=== PATIENT | male | born 1970 | race Caucasian/White ===

== ENCOUNTER 2017-08-26 16:16 | Emergency (ER) | payer BC ==
[~2017-08-26] VITALS: Ht 175.3 cm; Wt 63.0 kg
[2017-08-26 16:32] VITALS: BP 143/83
[2017-08-26] MEDS ORDERED: NITROGLYCERIN 0.4 MG TAB SL ONE (16:50)
[2017-08-26] MEDS ORDERED: ASPIRIN 325 MG TAB PO ONE (16:50)
[2017-08-26 17:04] LABS: BASOPHILS # (AUTO) 0.3 K/uL (0.00-0.22); EOSINOPHILS # (AUTO) 0.2 K/uL (0-0.4); HEMATOCRIT 43.3 % (36-52); HEMOGLOBIN 14.6 g/dL (12.0-18.0); LYMPHOCYTES # (AUTO) 2.6 K/uL (2.0-11.5); MEAN CORPUSCULAR HEMOGLOBIN 30 pg (27-31); MEAN CORPUSCULAR HGB CONC 34 g/dL (33-37); MEAN CORPUSCULAR VOLUME 89 fL (80-94); MONOCYTES # (AUTO) 0.8 K/uL (0.8-1.0); NEUTROPHILS # (AUTO) 3.4 K/uL (1.8-7.7); PLATELET COUNT (AUTO) 200 K/uL (140-450); RED BLOOD CELL COUNT(AUTO) 4.85 MIL/uL (4.20-6.10); RED CELL DISTRIBUTION WIDTH 12.1 % (11.6-13.7); WHITE BLOOD COUNT (AUTO) 7.3 K/uL (4.8-10.8)
[2017-08-26 17:16] LABS: ANION GAP 8.8 (8-16); CREATININE 0.9 mg/dL (0.7-1.3); POTASSIUM 3.8 mmol/L (3.5-5.1)
[2017-08-26 17:23] LABS: ALBUMIN 3.8 g/dL (3.4-5.0); TOTAL BILIRUBIN 0.3 mg/dL (0.0-1.0)
--- NOTE | 2017-08-26 17:50 | NUR ---
Patient ambulated to bed 11. RN evaluating patient at bedside.
[2017-08-26] MEDS ORDERED: LORazepam 1 MG TAB PO ONE (18:00)
--- NOTE | 2017-08-26 18:00 | NUR ---
47m bib with c/o 4/10 "sharp" non radiating righrt and left sided cp that started around 1430; pt states around 1430 while he was wathching tv, he started to feel anxious and cp began; pt also reports of "all over" headache and left arm pain. pt denies any n/v/d at this time. pt is aox4, rr are even and unlabored. skin is warm, pink, and dry. nad. vss. pt positioned to comfort, bed down. will continue to montior.
[2017-08-26 19:20] VITALS: BP 130/79
== END 2017-08-26 19:20 | disposition home or self-care (01) ==
LOC: MED 16:16
DX: F41.9 Anxiety disorder, unspecified (principal); R07.9 Chest pain, unspecified; F17.200 Nicotine dependence, unspecified, uncomplicated
CPT/HCPCS: 36415; 71010; 80053; 83880; 84484; 85025; 99285

== ENCOUNTER 2019-02-07 23:55 | Emergency (ER) | payer BC ==
[~2019-02-07] VITALS: Ht 170.2 cm; Wt 65.3 kg
[2019-02-07 23:55] VITALS: BP 137/76
--- NOTE | 2019-02-08 00:05 | NUR ---
PT AMBULATED TO BED #3
[2019-02-08] MEDS ORDERED: ASPIRIN 325 MG TAB PO ONE (00:10)
--- NOTE | 2019-02-08 00:15 | NUR ---
LAB AT BEDSIDE.
--- NOTE | 2019-02-08 00:26 | NUR ---
DR. MILLER EVALUATING PT
[2019-02-08 00:27] LABS: BASOPHILS % (AUTO) 0.8 % (0.0-2.0); EOSINOPHILS # (AUTO) 0.2 K/uL (0-0.4); HEMATOCRIT 42.2 % (36-52); HEMOGLOBIN 14.4 g/dL (12.0-18.0); LYMPHOCYTES # (AUTO) 2.7 K/uL (2.0-11.5); MEAN CORPUSCULAR HEMOGLOBIN 30 pg (27-31); MEAN CORPUSCULAR HGB CONC 34 g/dL (33-37); MEAN CORPUSCULAR VOLUME 88.7 fL (80-94); MONOCYTES # (AUTO) 0.5 K/uL (0.8-1.0); MONOCYTES % (AUTO) 8.5 % (1.7-9.3); NEUTROPHILS # (AUTO) 2.4 K/uL (1.8-7.7); NEUTROPHILS % (AUTO) 40.7 % (42.2-75.2); PLATELET COUNT (AUTO) 206 K/uL (140-450); RED BLOOD CELL COUNT(AUTO) 4.76 MIL/uL (4.20-6.10); RED CELL DISTRIBUTION WIDTH 12.7 % (11.6-13.7)
[2019-02-08 00:28] LABS: APPEARANCE,URINE CLEAR (CLEAR); BILIRUBIN,URINE NEGATIVE (NEGATIVE); BLOOD, URINE TRACE-I (NEGATIVE); COLOR,URINE YELLOW (YELLOW); LEUKOCYTE ESTERASE ,URINE NEGATIVE (NEGATIVE); NITRITE, URINE NEGATIVE (NEGATIVE); UGLUCOSE NEGATIVE (NEGATIVE)
--- NOTE | 2019-02-08 00:30 | NUR ---
PT BIB SELF FOR CHEST PAIN AND SOB. RR EVEN AND UNLABORED, PT 02 100% ON RA. NON PROVOKED CHEST PAIN. PT STATES HE HAS BEEN TAKING DAUGHTERS ANTIANXIETY MEDS W/O RELIEF. PT AWAKE AND ALERT, ACTING APPROPRIATE.
--- NOTE | 2019-02-08 00:32 | NUR ---
EKG PERFORMED AT BEDSIDE
[2019-02-08 00:34] LABS: BARBITURATE, URINE NEG. ng/ml (NEG <=200); BENZODIAZEPINE, URINE NEG. ng/mL (NEG <=200); CANNABINOID, URINE NEG. ng/mL (NEG <=50); COCAINE, URINE NEG. ng/mL (NEG <=300); OPIATE, URINE NEG. ng/mL (NEG <=2000); PHENCYCLIDINE SCREEN,URINE NEG. ng/mL (NEG <=25)
[2019-02-08] MEDS ORDERED: MORPHINE SULFATE 4 MG/ML SYR IVP ONE (00:35)
[2019-02-08] MEDS ORDERED: NITROGLYCERIN 0.4 MG TAB SL ONE (00:35)
[2019-02-08 00:36] LABS: ANION GAP 8.1 (8-16); CARBON DIOXIDE 28.7 mmol/L (21-32); CREATININE 0.8 mg/dL (0.7-1.3); POTASSIUM 3.8 mmol/L (3.5-5.1)
[2019-02-08 00:42] LABS: ALBUMIN 3.5 g/dL (3.4-5.0); TOTAL BILIRUBIN 0.2 mg/dL (0.0-1.0)
[2019-02-08 00:46] LABS: RBC,URINE 0-5 /HPF (0-5); WBC,URINE 0-5 /HPF (0-5)
--- NOTE | 2019-02-08 01:10 | NUR ---
PT REPORTS RELIEF OF SYMPTOMS AFTER MORPHINE ADMIN.
--- NOTE | 2019-02-08 03:00 | NUR ---
IV removed, catheter intact and site benign. Applied folded 4x4 gauze and tape to stop bleeding.
--- NOTE | 2019-02-08 03:08 | NUR ---
Patient discharged with v/s stable. Written and verbal after care instructions given and explained. Patient verbalized understanding. Ambulatory with steady gait. All questions addressed prior to discharge. Advised to follow up with PMD.
[2019-02-08 03:10] VITALS: BP 100/86
== END 2019-02-08 03:08 | disposition home or self-care (01) ==
LOC: MED 23:55
DX: R07.89 Other chest pain (principal); R06.02 Shortness of breath; M79.602 Pain in left arm; F17.210 Nicotine dependence, cigarettes, uncomplicated; Z71.6 Tobacco abuse counseling
CPT/HCPCS: 36415; 71045; 80053; 80305; 81001; 83880; 84484; 85025; 93005; 96374; 99284; J2270; Q0092